=== PATIENT | female | born 1980 | race African-American/Black ===

== ENCOUNTER 2021-07-23 10:02 | Emergency (ER) | payer OTHER | END 2021-07-23 11:24 | disposition home or self-care (01) | LOC: CSHERS 10:02 | DX: M25.531 Pain in right wrist (principal); J45.909 Unspecified asthma, uncomplicated ==

== ENCOUNTER 2022-10-27 22:11 | Emergency (ER) | payer OTHER ==
[2022-10-27 23:23] LABS: #Eosinphils 0.9 10x3/uL (0.0-0.5); #Monocytes 0.4 10x3/uL (0.0-1.1); #Neutrophils 6.7 10x3/uL (1.5-8.4); %Basophils 0.2 % (0.0-2.0); %Eosinophils 9.8 % (0.0-6.0); %Lymphocytes 11.8 % (18.0-47.0); %Monocytes 4.3 % (0.0-10.0); %Neutrophils 73.6 % (40.0-75.0); ALT (SGPT) 10 U/L (8-55); AST (SGOT) 17 U/L (5-34); Albumin 3.7 g/dL (3.5-5.0); Alkaline Phosphatase 57 U/L (40-110); Anion Gap 12 mmol/L (10-20); BUN (Urea Nitrogen) 7 mg/dL (7.0-18.7); Bilirubin, Total 0.5 mg/dL (0.2-1.2); Calc. Creatinine Clearance 0 mL/min (70-130); Calcium 8.5 mg/dL (7.8-10.44); Carbon Dioxide 23 mmol/L (22-29); Chloride 106 mmol/L (98-107); Estimated GFR 99; Globulin 3.2 g/dL (2.4-3.5); Glucose 92 mg/dL (70-105); Hemoglobin 7.6 g/dL (12.0-15.5); Mean Corpuscular Hemoglobin 19.7 pg (27.0-33.0); Mean Corpuscular Volume 70.4 fl (81.6-98.3); Mean Platelet Volume 10.1 fl (7.4-10.4); Platelet Count 305 10x3/uL (150-450); Potassium 3.9 mmol/L (3.5-5.1); Protein, Total 6.9 g/dL (6.0-8.3); RBC Distribution Width 17.9 % (11.5-14.5); Red Blood Cell (RBC) Count 3.85 10x6/uL (3.90-5.03); Sodium 137 mmol/L (136-145); White Blood Cell (WBC) Count 9.2 10x3/uL (3.5-10.5)
[2022-10-27] MEDS ORDERED: Ondansetron PF 4 MG/2 ML Vial ONE (23:36)
[2022-10-28 00:42] LABS: Bilirubin Neg (Negative); Blood, Urine Negative (Negative); Clarity Clear (Clear); Glucose, Urine (Dipstick) Normal (Negative); Ketone, Urine Negative (Negative); Leukocyte 25 (Negative); Nitrite Negative (Negative); Protein, Urine (Dipstick) Negative (Neg-Trace); Specific Gravity, Urine 1.005 (1.005-1.030); Urobilinogen Normal mg/dL (Less than 2); pH, Urine 6.5 (5.0-9.0)
[2022-10-28 00:45] LABS: Pregnancy Test - Urine (BHCG) Negative (Negative); Pregu Control Background? CLEAR/WHITE (CLR/WHITE); Pregu Control Bar Appear? YES (CONTROL BAR); Specific Gravity 1.005 (1.002-1.036)
[2022-10-28 00:48] LABS: Anisocytosis MODERATE=16-30 cells (100X) (0-5/hpf); Macrocytosis SLIGHT = 6-15 cells (100X) (0-5/hpf); Microcytosis SLIGHT = 6-15 cells (100X) (0-5/hpf)
[2022-10-28 00:49] LABS: Hypochromia MODERATE=16-30 cells (100X) (0-5/hpf); Ovalocytes SLIGHT = 2-5 cells (100X) (0-1/hpf)
[2022-10-28 00:50] LABS: SARS-CoV-2 NAA Rapid Test Not Detected (NotDetected)
[2022-10-28 00:50] LABS: Platelet Morphology Comment Appears Adequate
[2022-10-28 00:51] LABS: Large Platelets SLIGHT
[2022-10-28 00:57] LABS: Bacteria/HPF None Seen HPF (None Seen); RBC/HPF 0-3 HPF (0-3); Squamous Epithelial None Seen HPF (0-3); WBC/HPF 0-3 HPF (0-3)
[2022-10-28] MEDS ORDERED: Ipratropium/Albuterol 3 ML NEB ONE (04:40)
[2022-10-28 05:08] LABS: Mean Platelet Volume 11.2 fl (7.4-10.4); Platelet Count 176 10x3/uL (150-450)
[2022-10-28 05:09] LABS: #Eosinphils 0.7 10x3/uL (0.0-0.5); #Monocytes 0.4 10x3/uL (0.0-1.1); #Neutrophils 5.6 10x3/uL (1.5-8.4); %Basophils 0.3 % (0.0-2.0); %Eosinophils 8.7 % (0.0-6.0); %Lymphocytes 14.5 % (18.0-47.0); %Monocytes 5.5 % (0.0-10.0); %Neutrophils 70.7 % (40.0-75.0); Mean Corpuscular HGB CONC 29.1 g/dL (32.0-36.0); Mean Corpuscular Hemoglobin 21.3 pg (27.0-33.0); RBC Distribution Width 19.5 % (11.5-14.5); Red Blood Cell (RBC) Count 4.23 10x6/uL (3.90-5.03); White Blood Cell (WBC) Count 7.9 10x3/uL (3.5-10.5)
[2022-10-28 05:49] LABS: Anisocytosis SLIGHT = 6-15 cells (100X) (0-5/hpf); Hypochromia MODERATE=16-30 cells (100X) (0-5/hpf); Microcytosis SLIGHT = 6-15 cells (100X) (0-5/hpf); Ovalocytes SLIGHT = 2-5 cells (100X) (0-1/hpf); Platelet Clumps SLIGHT; Platelet Morphology Comment Appears Adequate
[2022-10-28] MEDS ORDERED: Iopamidol 300 61% 100 ML VIAL FS ONE (15:53)
== END 2022-10-28 06:04 | disposition home or self-care (01) ==
LOC: CSHERS 22:11
DX: N39.0 Urinary tract infection, site not specified (principal); D64.9 Anemia, unspecified; Z20.822 Contact with and (suspected) exposure to COVID-19
CPT/HCPCS: 36415; 36430; 71045; 74177; 80053; 81003; 81015; 81025; 83690; 85025; 86850; 86900; 86901; 94760; 96374; J2405; J7620; P9016; Q9967

== ENCOUNTER 2022-12-10 06:54 | Day surgery (SDC) | payer OTHER ==
[2022-12-08 17:05] VITALS: BMI 26.5
[2022-12-08 17:17] LABS: Hemoglobin 9.7 g/dL (12.0-15.5); Mean Corpuscular HGB CONC 29.1 g/dL (32.0-36.0); Mean Corpuscular Hemoglobin 24.3 pg (27.0-33.0); Mean Corpuscular Volume 83.3 fl (81.6-98.3); Mean Platelet Volume 10.7 fl (7.4-10.4); Platelet Count 346 10x3/uL (150-450); RBC Distribution Width 21.7 % (11.5-14.5); White Blood Cell (WBC) Count 6.9 10x3/uL (3.5-10.5)
[2022-12-08 17:35] LABS: BHCG - Serum Negative (NEGATIVE); Pregs Control Background? CLEAR/WHITE (CLR/WHITE); Pregs Control Bar Appear? YES (CONTROL BAR)
[2022-12-10] MEDS ORDERED: Gabapentin 300 MG CAP ONE (08:16)
[2022-12-10] MEDS ORDERED: CeleCOXIB 100 MG CAP ONE (08:17)
[2022-12-10] MEDS ORDERED: Famotidine/PF 20 mg/2ml Vial ONE (08:18)
[2022-12-10] MEDS ORDERED: Dexamethasone 20 MG/5 ML VIAL ONE (09:13)
[2022-12-10] MEDS ORDERED: Lidocaine 1% PF 5 ML VIAL ONE (09:13)
[2022-12-10] MEDS ORDERED: Glycopyrrolate 0.2 MG/ML 5 ML SYRINGE ONE (09:13)
[2022-12-10] MEDS ORDERED: PROPOFOL 20 ML ONE (09:13)
[2022-12-10] MEDS ORDERED: Midazolam HCl 2 mg/2 ml Vial ONE (09:13)
[2022-12-10] MEDS ORDERED: Ondansetron PF 4 MG/2 ML Vial ONE (09:13)
[2022-12-10] MEDS ORDERED: Rocuronium Bromide 10 MG/ML (10ML VIAL) ONE (09:13)
[2022-12-10] MEDS ORDERED: Fentanyl 250 MCG/5 ML VIAL ONE (09:13)
[2022-12-10] MEDS ORDERED: Ketorolac Tromethamine 30 MG/ML VIAL ONE (09:14)
[2022-12-10] MEDS ORDERED: Bupivacaine HCl 0.5%/Epinephrine 1:200,000/PF 30 ml Vial ONE (09:15)
[2022-12-10] MEDS ORDERED: CEFAZOLIN 2 GM VIAL ONE (09:40)
[2022-12-10] MEDS ORDERED: ePHEDrine Sulfate 50 MG/10 ML VIAL ONE (10:06)
[2022-12-10] MEDS ORDERED: HYDROcodone/Acetaminophen 5/325 mg Tablet ONE (14:09)
== END 2022-12-10 15:05 | disposition home or self-care (01) ==
LOC: CSHSDC 06:54
PROVIDERS: ATTEND Obstetrics & Gynecology
DX: D25.9 Leiomyoma of uterus, unspecified (principal); N73.6 Female pelvic peritoneal adhesions (postinfective); J45.909 Unspecified asthma, uncomplicated; D64.9 Anemia, unspecified; Z98.51 Tubal ligation status; Z79.899 Other long term (current) drug therapy; Z88.8 Allergy status to other drugs, medicaments and biological substances; Z91.048 Other nonmedicinal substance allergy status
CPT/HCPCS: 84703; 85027; 86850; 86900; 86901; 88307; C1889; C9250; J1100; J1885; J2250; J2405; J2704; J3010; S0028

== ENCOUNTER 2023-04-03 07:26 | Emergency (ER) | payer OTHER ==
[2023-04-03] MEDS ORDERED: Ketorolac Tromethamine 30 MG/ML VIAL ONE (08:07)
== END 2023-04-03 08:09 | disposition home or self-care (01) ==
LOC: CSHERS 07:26
DX: G56.01 Carpal tunnel syndrome, right upper limb (principal)
CPT/HCPCS: 96372; 99283; J1885

== ENCOUNTER 2023-05-17 19:19 | Emergency (ER) | payer OTHER ==
[2023-05-17] MEDS ORDERED: Ibuprofen 200 MG TAB ONE (21:56)
== END 2023-05-17 23:26 | disposition home or self-care (01) ==
LOC: CSHERS 19:19
DX: S93.402A Sprain of unspecified ligament of left ankle, initial encounter (principal); X50.9XXA Other and unspecified overexertion or strenuous movements or postures, initial encounter

== ENCOUNTER 2023-06-01 20:48 | Emergency (ER) | payer OTHER ==
[2023-06-01] MEDS ORDERED: Dexamethasone 10 MG/ML VIAL ONE (21:51)
[2023-06-01] MEDS ORDERED: Acetaminophen 500 MG TAB ONE (21:51)
== END 2023-06-01 22:00 | disposition home or self-care (01) ==
LOC: CSHERS 20:48
DX: J45.901 Unspecified asthma with (acute) exacerbation (principal)
CPT/HCPCS: 96372; 99284; J1100

== ENCOUNTER 2023-06-15 16:30 | Emergency (ER) | payer OTHER ==
[2023-06-15] MEDS ORDERED: predniSONE 20 MG TAB ONE (17:11)
[2023-06-15] MEDS ORDERED: Ipratropium Bromide 2.5 ml Neb ONE (17:11)
[2023-06-15] MEDS ORDERED: Albuterol 2.5 MG/0.5 ML NEB ONE (17:11)
[2023-06-15 18:04] LABS: SARS-CoV-2 NAA Rapid Test Not Detected (NotDetected)
== END 2023-06-15 18:45 | disposition home or self-care (01) ==
LOC: CSHERS 16:30
DX: J06.9 Acute upper respiratory infection, unspecified (principal); J18.9 Pneumonia, unspecified organism; R06.2 Wheezing; Z20.822 Contact with and (suspected) exposure to COVID-19
CPT/HCPCS: 71045; 94640; J7512; J7611